=== PATIENT | male | born 1970 | race Caucasian/White ===

== ENCOUNTER 2020-09-23 09:01 | Day surgery (SDC) | payer OTHER ==
[~2020-09-23] VITALS: Ht 177.8 cm; Wt 99.0 kg
[~2020-09-23 09:01] MED LIST: BACITRACIN 50,000 UNIT ONE; BUPIVACAINE/PF 0.5% ONE; EPINEPHRINE 1 MG/ML, 1ML ONE; LIDOCAINE/PF 1%-EPI 1:200K, 30 ML ONE; VANCOMYCIN 1,000 MG ONE
[2020-09-23 09:38] VITALS: BP 122/77
[2020-09-23] MEDS ORDERED: SERT100T PO (09:56)
[2020-09-23] MEDS ORDERED: LISI-170 PO (09:56)
[2020-09-23] MEDS ORDERED: METF10007 PO (09:56)
[2020-09-23] MEDS ORDERED: EZET10TA70 PO (09:56)
[2020-09-23] MEDS ORDERED: INSU100V35 SC (09:56)
[2020-09-23] MEDS ORDERED: ASPI-963 PO (09:56)
[2020-09-23] MEDS ORDERED: HYDR-3248 PO (09:56)
[2020-09-23] MEDS ORDERED: SEMA1PEN3 INJ (09:56)
[2020-09-23] MEDS ORDERED: ATOR10TA9 PO (09:56)
[2020-09-23] MEDS ORDERED: MULT-658 PO (09:56)
[2020-09-23] MEDS ORDERED: LACTATED RINGERS 1,000 ML IV SCH (10:00)
[2020-09-23] MEDS ORDERED: CHLORHEXIDINE 15 ML UDC PO ONE (10:00)
[2020-09-23] MEDS ORDERED: FENTANYL PF 250 MCG/5ML ONE ×2 (13:07→13:41)
[2020-09-23] MEDS ORDERED: MIDAZOLAM 1 MG/ML, 2ML ONE (13:07)
[2020-09-23] MEDS ORDERED: PROPOFOL 10 MG/ML, 20ML ONE (13:14)
[2020-09-23] MEDS ORDERED: ROCURONIUM 10MG/ML,5ML ONE (13:14)
[2020-09-23] MEDS ORDERED: SUCCINYLCHOLINE 20 MG/ML, 10ML ONE (13:14)
[2020-09-23] MEDS ORDERED: CEFAZOLIN 1,000 MG ONE (13:14)
[2020-09-23] MEDS ORDERED: ONDANSETRON 2MG/ML, 2ML ONE (13:14)
[2020-09-23] MEDS ORDERED: NEOSTIGMINE 1 MG/ML, 10ML ONE (13:14)
[2020-09-23] MEDS ORDERED: DEXAMETHASONE 4 MG/ML, 1ML ONE ×2 (13:14→14:34)
[2020-09-23] MEDS ORDERED: GLYCOPYRROLATE 0.2MG/1ML, 5ML ONE (13:14)
[2020-09-23] MEDS ORDERED: PROPOFOL 50 ML ONE (13:30)
[2020-09-23] MEDS ORDERED: DEXAMETHASONE 4 MG/ML, 1ML IVPush ONE (14:30)
[2020-09-23] MEDS ORDERED: ACETAMINOPHEN 650 MG/20.3 ML UDC ONE (14:41)
[2020-09-23] MEDS ORDERED: FENTANYL PF 100 MCG/2ML ONE (14:42)
[2020-09-23] MEDS ORDERED: OXYcodone 5 MG/5 ML ORAL.SOL UDC ONE (14:42)
[2020-09-23] MEDS ORDERED: FENTANYL PF 100 MCG/2ML IV PRN (15:00)
[2020-09-23] MEDS ORDERED: ACETAMINOPHEN 325 MG TABLET PO PRN (15:00)
[2020-09-23] MEDS ORDERED: OXYcodone 5 MG/5 ML ORAL.SOL UDC PO PRN (15:00)
[2020-09-23] MEDS ORDERED: ONDANSETRON 2MG/ML, 2ML IVPush PRN (15:00)
[2020-09-23] MEDS ORDERED: HYDROmorphone 1 MG/ML, 1ML INJ IVPush PRN (15:00)
[2020-09-23] MEDS ORDERED: PROMETHAZINE 25 MG/ML, 1ML IVPush PRN (15:00)
[2020-09-23] MEDS ORDERED: MEPERIDINE/PF 25MG/0.5ML IVPush PRN (15:00)
== END 2020-09-23 16:10 | disposition home or self-care (01) ==
LOC: OUT 09:01
PROVIDERS: ATTEND Orthopaedic Surgery Orthopaedic Surgery of the Spine
DX: M51.17 Intervertebral disc disorders with radiculopathy, lumbosacral region (principal); M48.07 Spinal stenosis, lumbosacral region; I10 Essential (primary) hypertension; E11.9 Type 2 diabetes mellitus without complications; I25.10 Atherosclerotic heart disease of native coronary artery without angina pectoris; I25.2 Old myocardial infarction; J45.909 Unspecified asthma, uncomplicated; Z20.822 Contact with and (suspected) exposure to COVID-19; Z79.899 Other long term (current) drug therapy; Z88.5 Allergy status to narcotic agent; Z95.5 Presence of coronary angioplasty implant and graft
CPT/HCPCS: 63042; 72100; 82962; 87635; 95938; 95941; J0171; J0330; J0690; J1100; J2250; J2405; J2704; J2710; J3010; J7120; J3370